=== PATIENT | male | born 1965 | race Caucasian/White ===

== ENCOUNTER → 2016-08-25 | Outpatient (CLI) | payer BC ==
[2016-08-25 07:45] LABS: CHCM 34.2; HCT 49.4 % (39.0-53.0); HDW 3.03; HGB 16.7 gm/dL (13.0-17.5); MCH 30.9 pg (25.0-35.0); MCHC 33.9 g/dL (31.0-37.0); MCV 91.1 fL (80.0-100.0); Mean Platelet Volume 7.3; RBC 5.42 m/uL (4.30-5.90); RDW 14.2 % (11.5-15.5); WBC 9.6 k/uL (3.8-10.6)
[2016-08-25 08:24] LABS: Anion Gap 12 mmol/L; Blood Urea Nitrogen 21 mg/dL (9-20); Carbon Dioxide 26 mmol/L (22-30); Chloride 102 mmol/L (98-107); Non-African American GFR(MDRD) >60 (>60 ml/min/1.73 sqM); Potassium 4.5 mmol/L (3.5-5.1); Sodium 140 mmol/L (137-145)
== END | disposition home or self-care (01) ==
LOC: LABPAT 07:18
PROVIDERS: ATTEND Internal Medicine Interventional Cardiology
DX: I25.10 Atherosclerotic heart disease of native coronary artery without angina pectoris (principal)
CPT/HCPCS: 80051; 82565; 84520; 85027

== ENCOUNTER 2016-09-06 06:27 | Day surgery (SDC) | payer BC ==
[~2016-09-06 06:27] MED LIST: ALPRAZolam 0.25 MG TAB PO PRN; ALPRAZolam 0.5 MG TAB PO PRN; ASPIRIN 325 MG TAB PO STA; ATORVASTATIN 80 MG TAB PO STA; NITROGLYCERIN SL TABS 0.4 MG TAB SUBLINGUAL PRN; SODIUM CHLORIDE 0.9% 1,000 ML in EMPTY BAG 1 BAG IV ONE
[2016-09-06] MEDS ORDERED: LIDOCAINE 2% INJ 20 MG/ML (20 ML MDV) ONE ×2 (07:22→07:33)
[2016-09-06] MEDS ORDERED: MIDAZOLAM 2 MG/2 ML VIAL ONE (07:27)
[2016-09-06] MEDS ORDERED: diphenhydrAMINE 50 MG/ML 1 ML VIAL ONE (07:27)
[2016-09-06 07:30] LABS: Glucose,Whole Blood 154 mg/dL (75-99)
[2016-09-06] MEDS ORDERED: MIDAZOLAM 2 MG/2 ML VIAL IV ONE (07:32)
[2016-09-06] MEDS ORDERED: diphenhydrAMINE 50 MG/ML 1 ML VIAL IVP ONE (07:33)
[2016-09-06] MEDS ORDERED: LIDOCAINE 2% INJ 20 MG/ML SQ ONE (07:33)
[2016-09-06] MEDS ORDERED: SODIUM CHLORIDE 0.9% 1,000 ML IV ONE (07:34)
[2016-09-06] MEDS: NITROGLYCERIN 1000MCG/10ML SYRINGE INTRACORON ONE ×2 (08:04→08:22)
[2016-09-06] MEDS ORDERED: BIVALIRUDIN BOLUS 250 MG/50 ML IV ONE (08:11)
[2016-09-06] MEDS ORDERED: BIVALIRUDIN 250 MG in SODIUM CHLORIDE 0.9% 50 ML IV ONE (08:12)
[2016-09-06] MEDS ORDERED: PRASUGREL 10 MG TAB ONE (08:29)
[2016-09-06] MEDS ORDERED: PRASUGREL 10 MG TAB PO ONE (08:30)
[2016-09-06] MEDS ORDERED: IOHEXOL 350 MG/ML 125ML BOTTLE INJ ONE (08:41)
[2016-09-06] MEDS ORDERED: ATROPINE SULFATE 0.1 MG/ML 10ML SYRINGE IV PRN (08:44)
[2016-09-06] MEDS ORDERED: MAG HYDROX/AL HYDROX/SIMETH 30 ML CUP PO PRN (08:44)
[2016-09-06] MEDS ORDERED: RX INFO: IV CONTRAST WAS GIVEN 1 EACH MISC MISCELLANE PRN (08:44)
[2016-09-06] MEDS ORDERED: ZOLPIDEM 5 MG TAB PO PRN (08:44)
[2016-09-06] MEDS ORDERED: NITROGLYCERIN SL TABS 0.4 MG TAB SUBLINGUAL PRN (08:44)
[2016-09-06 12:16] LABS: Glucose,Whole Blood 191 mg/dL (75-99)
--- NOTE | 2016-09-06 12:32 | CC ---
DATE OF SERVICE: 09/06/2016 PROCEDURE: Left heart catheterization and coronary angiography. Performed by Dr. Mayo Damon. CLINICAL INFORMATION: Mr. Shan Mcqueen is a 51-year-old gentleman with history of hypertension, type 2 diabetes, hyperlipidemia who has been having symptoms of chest discomfort, but a negative stress test. On the echo, he had wall motion abnormality and therefore given his ongoing symptoms and significant risk factor profile, he was advised coronary angiography, after due discussion and explanation of risks, benefits, and options. PROCEDURE NOTE: Under local anesthesia and strict aseptic precautions and local anesthesia, a 6 [place] introducer was placed in the right femoral artery. I used a 3.5 curved catheter for the left coronary artery and this was a 3.5 left Bc catheter and a standard right Bc was used for right coronary artery. A pigtail catheter was used to check pressures but LV gram was not performed. I noted that patient had a mid LAD lesion and proceeded to perform intervention in the same setting. Cardiac catheterization findings: The left ventricle end-diastolic pressure was 16 mmHg without any gradient across the aortic valve. CORONARY ANGIOGRAPHIC FINDINGS: LEFT MAIN CORONARY ARTERY: A short, patent, disease-free vessel that immediately bifurcates into LAD and circumflex. LEFT ANTERIOR DESCENDING CORONARY ARTERY: Good caliber vessel extends along the anterior wall, gives off septal and diagonal branch and in the midportion, just before the second diagonal branch, there is eccentric 70% stenosis which seemed more obvious and well-circumscribed with intracoronary nitroglycerin injection. Beyond the stenotic segment, there is another diagonal branch and it runs all the way to the apex, but overall distribution is moderate. No other significant lesions are noted. LEFT POSTERIOR CIRCUMFLEX CORONARY ARTERY: Technically, a nondominant good caliber, good distribution vessel, has minor irregularities. No significant obstructive disease is noted. RIGHT CORONARY ARTERY: A large dominant disease-free vessel that supplies sizable amount of myocardium and distally bifurcates into PDA and PLV, both of which supply a sizable amount of myocardium. There is no significant disease in the dominant RCA. LEFT VENTRICULOGRAM: This was not performed. FINAL IMPRESSION: This patient has a 70% mid left anterior descending artery lesion. The dominant right coronary artery and circumflex are free of significant disease and filling pressures are mildly elevated. RECOMMENDATIONS: I recommend intervention of the LAD and proceeded to perform this in the same setting. This patient had the PTCA performed immediately after the cardiac catheterization and further total duration of the procedure for about 1 hour and 15 minutes. He received moderate conscious sedation with a combination of Versed and Benadryl.
--- NOTE | 2016-09-06 12:35 | PTCA ---
DATE OF SERVICE: 09/06/2016 PROCEDURE: PTCA and stenting of mid LAD. Performed by Dr. Mayo Damon. PROCEDURE NOTE: The existing 6 [place] introducer in the right femoral artery was used to perform the procedure. I used a 3.5 curved left Bc guide catheter to cannulate the left coronary artery. The guide support was not very optimal. A BMW wire was used to cross the lesion. Without predilatation, a 12 mm long, 2.75 caliber Xience stent was deployed at 12 atmospheres. Patient had mild chest discomfort and mild precordial ST elevation. Excellent angiographic result was achieved. He received 60 mg of Effient. The sheath was then taken out and Angio-Seal device used to secure hemostasis. Patient received Angiomax bolus and infusion. Excellent angiographic result without complication was noted. Patient received moderate conscious sedation for 1 hour, 15 minutes for the cardiac cath and PTCA procedure.
--- NOTE | 2016-09-06 12:38 | LTR ---
September 06, 2016 RE: Richar Shan Dear Dr. Schmitt; Thank you for the opportunity to participate in the care of Mr. Shan Mcqueen. This gentleman underwent a cardiac cath. In view of his symptoms, although stress test did not reveal clear-cut ischemia, he has a mid LAD lesion of 70% and I performed intervention with a drug-eluting stent. I expect he will be discharged tomorrow. He should be on dual antiplatelet therapy without interruption for one year. Thank you for your referral and please call for questions. With kindest regards. Sincerely yours, CATA SUMMERS MD
[2016-09-06] MEDS: SODIUM CHLORIDE 0.9% 1,000 ML IV SCH ×2 (12:41→18:19)
[2016-09-06] MEDS ORDERED: MULTIVITAMINS, THERA 1 EACH TAB PO SCH (13:00)
[2016-09-06] MEDS: METOPROLOL TARTRATE 25 MG TAB PO SCH ×2 (13:58→21:01)
[2016-09-06] MEDS: LOSARTAN-HCTZ 50-12.5 MG 1 EACH TAB PO SCH (13:58)
[2016-09-06] MEDS: INSULIN LISPRO (humaLOG) 300 UNIT/3 ML VIAL SQ SCH ×3 (13:59→21:02)
[2016-09-06] MEDS: INSULIN DETEMIR 100 UNIT/ML 10 ML VIAL SQ SCH ×2 (14:01→21:02)
[2016-09-06 15:36] VITALS: BMI 31.6
[2016-09-06 18:26] LABS: Glucose,Whole Blood 239 mg/dL (75-99)
[2016-09-06 20:49] LABS: Glucose,Whole Blood 158 mg/dL (75-99)
[2016-09-07 06:13] LABS: Glucose,Whole Blood 134 mg/dL (75-99)
[2016-09-07] MEDS: INSULIN LISPRO (humaLOG) 300 UNIT/3 ML VIAL SQ SCH (06:34)
[2016-09-07 07:26] LABS: Basophils % (A) 0 %; CH 31.4; CHCM 34.3; Eosinophils # (A) 0.3 k/uL (0-0.7); Eosinophils % (A) 3 %; HCT 44.8 % (39.0-53.0); HDW 3.03; Luc # (Auto) 0.29; Luc % (Auto) 4; Lymphocytes % (A) 26 %; MCH 30.7 pg (25.0-35.0); MCHC 33.5 g/dL (31.0-37.0); MCV 91.8 fL (80.0-100.0); Mean Platelet Volume 7.1; Monocytes # (A) 0.5 k/uL (0-1.0); Monocytes % (A) 7 %; Neutrophils # (A) 4.7 k/uL (1.3-7.7); Neutrophils % (A) 60 %; RBC 4.88 m/uL (4.30-5.90); RDW 14.7 % (11.5-15.5); WBC 7.8 k/uL (3.8-10.6)
[2016-09-07 07:51] LABS: Anion Gap 7 mmol/L; Blood Urea Nitrogen 11 mg/dL (9-20); Calcium 8.7 mg/dL (8.4-10.2); Carbon Dioxide 20 mmol/L (22-30); Chloride 109 mmol/L (98-107); Glucose 126 mg/dL (74-99); Non-African American GFR(MDRD) >60 (>60 ml/min/1.73 sqM); Potassium 4.2 mmol/L (3.5-5.1); Sodium 136 mmol/L (137-145)
[2016-09-07] MEDS: METOPROLOL TARTRATE 25 MG TAB PO SCH (08:06)
[2016-09-07] MEDS: LOSARTAN-HCTZ 50-12.5 MG 1 EACH TAB PO SCH (08:07)
[2016-09-07] MEDS: INSULIN DETEMIR 100 UNIT/ML 10 ML VIAL SQ SCH (08:07)
[2016-09-07] MEDS ORDERED: ASPIRIN 81 MG CHEW PO SCH (09:00)
[2016-09-07] MEDS ORDERED: CLOPIDOGREL 75 MG TAB PO SCH (09:00)
[2016-09-07] MEDS ORDERED: PRASUGREL 10 MG TAB PO SCH (09:00)
--- NOTE | 2016-09-07 09:19 | DS ---
DATE OF ADMISSION: 09/06/2016 DATE OF DISCHARGE: 09/07/2016 DIAGNOSES: 1. Unstable angina. 2. Hypertension. 3. Type 2 diabetes mellitus. 4. Ankylosing spondylitis. PROCEDURES PERFORMED: Coronary angiography and PTCA and stenting of mid LAD. Mr. Mcqueen was brought in for the coronary angiography because of ongoing chest pain with strong risk factor profile and unremarkable stress test. Coronary angiography revealed 70% mid LAD lesion that was addressed by a drug-eluting stent. Excellent angiographic result was achieved. Postprocedure course was uneventful. This morning, he is doing well. Blood pressure is 128/70, pulse rate is about 70 per minute. HEENT: Unremarkable. Fundus was not examined by me. Neck is supple. No JVD. S1, S2 heard normally. Short systolic murmur noted. Lungs are clear. Abdomen is soft. Right groin is clean and dry with a small area of ecchymosis. Pulse is good. Distal pulses are good. EKG and laboratory data is unremarkable. Discharge instructions regarding medications, diet and activity were given. Patient was given Effient, but upon discharge I am giving him aspirin, Plavix, atorvastatin 80 mg b.i.d., metoprolol tartrate 25 mg b.i.d. and losartan HCTZ 100/ 25 daily. These scripts were given. Instructions were given and patient will be seen by me on Saturday at 8:30 a.m.
[2016-09-07 09:25] VITALS: BP 140/91; PULSE 94; RESP 18; TEMP 97.1
[2016-09-07] MEDS ORDERED: ATORVASTATIN 80 MG TAB PO SCH (21:00)
== END 2016-09-07 10:21 ==
LOC: CATHCVL 06:27 → 6SEL 10:33 → CATHCVL 09-07 10:21
PROVIDERS: ATTEND Internal Medicine Interventional Cardiology
DX: I25.110 Atherosclerotic heart disease of native coronary artery with unstable angina pectoris (principal); I10 Essential (primary) hypertension; Z87.891 Personal history of nicotine dependence; E11.9 Type 2 diabetes mellitus without complications; Z79.4 Long term (current) use of insulin; Z79.84 Long term (current) use of oral hypoglycemic drugs; E78.00 Pure hypercholesterolemia, unspecified; Z79.82 Long term (current) use of aspirin; Z79.899 Other long term (current) drug therapy
CPT/HCPCS: 99152; 99153 ×4; 93454; 80048; 85025; C9600; C1769 ×3; C1760; C1887; C1894; C1874; J2001; J2250; J1200; J0583; Q9967; 93458

== ENCOUNTER → 2017-12-31 | Outpatient (CLI) | payer BC ==
--- NOTE | 2017-12-31 14:48 | US ---
EXAMINATION TYPE: US venous doppler duplex LE RT DATE OF EXAM: 12/31/2017 1:59 PM COMPARISON: NONE CLINICAL HISTORY: L03.90 Cellulitis. SIDE PERFORMED: Right TECHNIQUE: The lower extremity deep venous system is examined utilizing real time linear array sonog mihir with graded compression, doppler sonography and color-flow sonography. VESSELS IMAGED: External Iliac Vein (EIV) Common Femoral Vein Deep Femoral Vein Greater Saphenous Vein * Femoral Vein Popliteal Vein Small Saphenous Vein * Proximal Calf Veins (* superficial vessels) 2 lymph noted noted in right groin: 1) = 2.4 x 2.0 x 1.1 cm 2) = 2.6 x 1.3 x 0.8 cm Right Leg: Negative for DVT IMPRESSION: 1. Right lower extremity ultrasound negative for deep venous thrombosis. 2. Note is made of right inguinal adenopathy.
== END | disposition home or self-care (01) ==
LOC: RADUSWWP 13:02
PROVIDERS: ATTEND Internal Medicine
DX: R59.0 Localized enlarged lymph nodes (principal)